=== PATIENT | male | born 1985 | race Caucasian/White ===

== ENCOUNTER → 2025-01-13 15:46 | Outpatient (REF) | payer OTHER, SELFPAY | LOC: RAD 15:46 | PROVIDERS: ATTENDING PHYSICIAN Orthopaedic Surgery; FAMILY PHYSICIAN Physician Assistant Medical | DX: S05.50XA Penetrating wound with foreign body of unspecified eyeball, initial encounter (principal) | CPT/HCPCS: 70030 ==